=== PATIENT | female | born 1960 | race Caucasian/White ===

== ENCOUNTER 2017-04-29 08:00 | Day surgery (SDC) | payer MEDICARE, OTHER ==
[~2017-04-29] VITALS: Ht 157.5 cm; Wt 78.8 kg
[~2017-04-29 08:00] MED LIST: HYDR-3498 PO; NAPR-260 PO
[2017-04-29 09:23] VITALS: Ht 157.5 cm; Wt 78.8 kg
[2017-04-29] MEDS ORDERED: MELOXICAM (09:29)
[2017-04-29] MEDS ORDERED: IMODIUM (09:29)
[2017-04-29] MEDS ORDERED: TOPAMAX (09:29)
[2017-04-29] MEDS ORDERED: LIDOCAINE 2% (SDV) 5 ML INJ ONE (09:43)
[2017-04-29] MEDS ORDERED: PROPOFOL 60 ML ONE (09:43)
[2017-04-29 09:50] VITALS: BP 106/72; PULSE 93; RESP 18
--- NOTE | 2017-04-29 10:37 | OPPN ---
Date/Time of Note Date/Time of Note DATE: 04/29/17 TIME: 10:35 Operative Report Preoperative Diagnosis Abdominal pain Chronic diarrhea Postoperative Diagnosis Bile reflux gastritis Internal hemorrhoids Operation/Procedure Performed Esophagogastroduodenoscopy and biopsy Colonoscopy and biopsy Provider: ALVA BARAHONA MD Anesthesia Type: MAC Estimated blood loss: none Transfusion Required: no Specimens Gastric biopsy Random colon biopsy Grafts/Implants: none Complications: no ALVA BARAHONA MD Apr 29, 2017 10:37
[2017-04-29 10:50] VITALS: BP 117/76; RESP 25
--- NOTE | 2017-04-29 11:48 | GILP ---
DATE OF PROCEDURE: 04/29/2017 PROCEDURE PERFORMED: 1. Esophagogastroduodenoscopy and biopsy. 2. Colonoscopy and biopsy. SURGEON: Indra Linares MD. PREOPERATIVE DIAGNOSES: 1. Abdominal pain. 2. Chronic diarrhea. POSTOP DIAGNOSES: 1. Bile reflux gastritis. 2. Gastric mucosal biopsies were taken for Helicobacter pylori test. 3. Colonoscopy all the way to the cecum. 4. Internal hemorrhoids. 5. Random biopsies were taken to rule out microscopic colitis. INDICATIONS FOR PROCEDURE: The patient is a 57-year-old female patient who had upper abdominal pain, not responding to therapy. He also had chronic diarrhea. The patient was scheduled for endoscopy and colonoscopy for further evaluation. The procedures and possible complications were well explained to the patient. She understood and consented to the procedures. DESCRIPTION OF PROCEDURE: Under the influence of anesthesia, the gastroscope was carefully introduced into the esophagus. Under direct vision, it was advanced to the stomach, into the pylorus, into the duodenal bulb, and descending duodenum. FINDINGS: Esophagus, mucosa was normal. Stomach, the patient had bile reflux gastritis. Gastric mucosal biopsies were taken for Helicobacter pylori test. Duodenum was normal. The colonoscope was carefully introduced in the rectum and under direct vision, it was advanced all the way to the cecum. FINDINGS: The patient had internal hemorrhoids. Random biopsies were taken to rule out microscopic colitis. She tolerated the procedures very well. There was no complication from the procedures. At the end of procedure, she was awake with stable vital signs and she was discharged home in care of her family. IMPRESSION: 1. Bile reflux gastritis. 2. Gastric mucosal biopsies were taken for Helicobacter pylori test. 3. Colonoscopy all the way to the cecum. 4. Internal hemorrhoids. 5. Random biopsies were taken to rule out microscopic colitis. PLAN: 1. Pantoprazole 40 mg p.o. q.a.m. 2. Questran 1 scoop full dissolved in a glass of water p.o. b.i.d. 3. Await histopathology reports. Dictated By: MD NBA Argueta/[email or web address]/[email or web address] /Document#: [id number]
== END 2017-04-29 16:58 | disposition home or self-care (01) ==
LOC: GIL 08:00
PROVIDERS: ATTEND Internal Medicine Gastroenterology
DX: K29.60 Other gastritis without bleeding (principal); K64.8 Other hemorrhoids
CPT/HCPCS: 87081; 88305

== ENCOUNTER 2018-06-19 13:22 | Emergency (ER) | END 2018-06-19 17:24 | disposition home or self-care (01) ==